=== PATIENT | female | born 1960 | race Hispanic/Latino ===

== ENCOUNTER 2022-03-20 08:16 | Day surgery (SDC) | payer OTHER ==
[~2022-03-20 08:16] MED LIST: SODIUM CHLORIDE 0.9% 1000 ML 1,000 ML IV SCH
[2022-03-20] MEDS ORDERED: LIDOCAINE MPF (2%) 20 MG/1 ML VIAL 5 ML ONE (09:42)
[2022-03-20] MEDS ORDERED: propofoL 200 MG/20 ML VIAL IV ONE ×3 (09:42→10:14)
--- NOTE | 2022-03-20 09:47 | Anesthesia Day of Surgery ---
Anesthesia Day of Surgery - Day of Surgery Patient Examined: Yes Patient H&P Reviewed: Yes Patient is NPO: Yes
--- NOTE | 2022-03-20 09:47 | Anesthesia Consultation ---
Anesthesia Consult and Med Hx Date of service: 03/20/22 - Airway Anesthetic Teeth Evaluation: Good ROM Head & Neck: Adequate Mental/Hyoid Distance: Adequate Mallampati Class: Class III Intubation Access Assessment: Possibly Difficult - Pre-Operative Health Status ASA Pre-Surgery Classification: ASA3 Proposed Anesthetic Plan: MAC - Pulmonary Hx Smoking: Yes (remote hx smoking) Hx Respiratory Symptoms: No - Cardiovascular System Hx Hypertension: Yes (took losartan last night) - Central Nervous System CVA: No - Gastrointestinal Hx Gastroesophageal Reflux Disease: Yes (w/ dysphagia) - Endocrine Hx Renal Disease: No Hx Liver Disease: No Hx Insulin Dependent Diabetes: No Hx Non-Insulin Dependent Diabetes: No Hx Thyroid Disease: No - Other Systems Hx Obesity: Yes - Additional Comments Anesthesia Medical History Comments: No hx anesthetic complications.
--- NOTE | 2022-03-20 10:34 | Procedure Note ---
Date of procedure: 03/20/22 Pre-op diagnosis: Dysphagia/ Colon Polyp Screening Post-op diagnosis: other (Mild, Benign Esophageal Stenosis (s/p Balloon dilation)/ Mild to Moderate Erosive Esophagitis/ R/O Eosinophilic Esophagitis/ Gastric Erosion and Gastritis/ Few, Small (possibly Hyperplastic ) Polyps (transverse Colon)/Few, Minor, Proximal Colon Diverticuli/ Minor, Internal Hemorrhoids/ Normal, Termi) Procedure: EGD with Cold Biopsy and Esophageal Balloon Dilation(20 mm Balloon)/ Colonoscopy with Cold Biopsy Anesthesia: MAC Surgeon: ROSE ZAPIEN Estimated blood loss: minimal Pathology: list Specimen disposition: to lab Condition: stable Disposition: same day (Treat with, encourage fiber intake and avoid aspirin and NSAID for 5 days; otherwise resume previous medication ad F/U in 1 to 2 weeks ([phone]).)
--- NOTE | 2022-03-20 10:46 | Operative Report ---
DATE OF SURGERY: 03/20/2022 PROCEDURE: Colonoscopy with cold biopsy. INDICATIONS: This is a 61-year-old white female, who had an EGD done prior to the colonoscopy, was noted to have some [id number] erosive esophagitis, some gastric erosion, gastritis and some mild benign esophageal stenosis, requiring esophageal dilation with a 20 mm balloon. DESCRIPTION OF PROCEDURE: Colonoscopy was done after getting informed consent with MAC anesthesia. Initial rectal examination was unremarkable. The instrument was passed through the rectum onto the cecum, which was identified by the ileocecal valve and appendiceal orifice. Cecum was also visualized on the retroverted view and was noted to have a few diverticula in the proximal colon. The terminal ileum was intubated, showed normal mucosa. The remaining part of the cecum showed normal mucosa. In the proximal transverse colon, there were a few small, possibly hyperplastic polyp noted that were removed by cold biopsy with minimal bleeding. The remaining part of the transverse colon, the descending colon, and sigmoid showed normal mucosa. The rectum showed some [id number] internal hemorrhoid on the retroverted view. ASSESSMENT: Colon polyp screening. The patient's prep was good. Few small possibly hyperplastic polyp noted in the proximal transverse colon, few proximal colon diverticular disease noted, [id number] internal hemorrhoid. PLAN: To encourage the patient to take fiber supplements, avoid aspirin and aspirin-related products for the next few days and follow up in the office in 1-2 weeks' time. The patient will also be placed on PPI because of the EGD findings of esophagitis and gastritis. Procedure was done in the GI lab with assistance of the GI lab team, which included the GI nurse, the industrial waste treatment technician and with assistance of anesthesia. TID: [id number] RECEIPT: [id number] FLAQUITO/JUDIT
--- NOTE | 2022-03-20 10:56 | Operative Report ---
DATE OF SURGERY: 03/20/2022 PROCEDURE: EGD with biopsy and esophageal balloon dilation. INDICATIONS: This is a 61-year-old white female who has lately been complaining of some dysphagia. EGD was done to assess for the issue and to do an esophageal dilation if needed. DESCRIPTION OF PROCEDURE: Procedure was done after getting informed consent with MAC anesthesia. The instrument was passed through the hypopharynx into the esophagus, which did show some mild benign esophageal stenosis. This was dilated at the end of the procedure with a 20 mm balloon that was maintained for a minute. There was some abrc-cq-vlogqzpb distal erosive esophagitis. Photodocumentation and biopsy was done from the distal esophagus to assess for the severity of the erosive esophagitis and also from the mid esophagus to assess for eosinophilic esophagitis. The stomach showed antral erosion and gastritis that was mild. Pylorus was patent. Duodenum in the first and second portion appeared normal. Biopsy was done from the gastric antrum, gastric body and angular incisura to rule out for H. pylori and atrophic gastritis. There was minimal bleeding associated with the procedure. No complications associated with the procedure. ASSESSMENT: Dysphagia secondary to mild benign esophageal stenosis, status post balloon dilation with a 20 mm balloon. Mild to moderate erosive esophagitis, rule out eosinophilic esophagitis, gastric erosion, gastritis, which was mild. No peptic ulcer disease was noted within the gastric or the duodenal lumen. PLAN: To treat the patient with PPI, have the patient avoid aspirin and aspirin-related products for the next 4-5 days, otherwise resume previous medication. A colonoscopy will also be done as part of colon polyp screening. The patient will be asked to follow up in the office in 2-3 weeks' time. Procedure was done in the GI lab with assistance of the GI lab team, which included the GI nurse and the dietary tech with the assistance of anesthesia. TID: [id number] RECEIPT: [id number] ELIAS
--- NOTE | 2022-03-20 12:31 | Post Anesthesia Evaluation ---
- Post Anesthesia Evaluation Patient Participated: Yes Airway Patent: Yes Stable Respiratory Function: Yes Nausea/Vomiting: No Temp > 96.8F: Yes Pain Manageable: Yes Adequeate Hydration: Yes Anesthesia Complications: No
[2022-03-20 17:45] VITALS: BP 134/67
== END 2022-03-20 11:00 | disposition home or self-care (01) ==
LOC: GIO 08:16
DX: Z12.11 Encounter for screening for malignant neoplasm of colon (principal); K57.30 Diverticulosis of large intestine without perforation or abscess without bleeding; K64.8 Other hemorrhoids; R13.10 Dysphagia, unspecified; K22.2 Esophageal obstruction; K21.00 Gastro-esophageal reflux disease with esophagitis, without bleeding; K29.70 Gastritis, unspecified, without bleeding; D12.3 Benign neoplasm of transverse colon; K31.89 Other diseases of stomach and duodenum; Z87.891 Personal history of nicotine dependence; Z79.899 Other long term (current) drug therapy; I10 Essential (primary) hypertension
CPT/HCPCS: 43239; 43249; 45380; 88305; 88342; C1726; J2704; J7030